=== PATIENT | female | born 1970 | race Two or more races ===

== ENCOUNTER → 2018-08-25 | Outpatient (CLI) | payer OTHER | END | disposition home or self-care (01) | LOC: LAB SHORT 13:47 → LAB 13:47 | DX: H92.02 Otalgia, left ear (principal) | CPT/HCPCS: 87070; 87077; 87186; 87205 ==

== ENCOUNTER 2020-07-20 09:56 | Day surgery (SDC) | payer OTHER ==
[~2020-07-20] VITALS: Ht 154.9 cm; Wt 52.6 kg
[2020-07-20] MEDS ORDERED: Vitamin D2000 UNIT PO (10:36)
--- NOTE | 2020-07-20 11:10 | NUR ---
07/20/20 1110 Meka Encarnacion TRANSLATION SERVICES UTILIZED IN PRE-OP FOR ADMISSION & CONSULTATION WITH PHYSICIAN.
== END 2020-07-20 14:30 | disposition home or self-care (01) ==
LOC: ORSCSDS 09:56
PROVIDERS: Otolaryngology
PROC: 0FB80ZX Excision of Cystic Duct, Open Approach, Diagnostic (ICD-10-PCS; principal; 2020-07-20 11:30)
DX: Q18.0 Sinus, fistula and cyst of branchial cleft (principal)
CPT/HCPCS: 88305; J1100; J2250; J2370; J2405; J2704; J3010; J7120

== ENCOUNTER 2022-07-20 12:00 | Inpatient (IN) | payer OTHER ==
[~2022-07-20] VITALS: Ht 162.6 cm; Wt 55.1 kg
[~2022-07-20 12:00] MED LIST changes: -Vitamin D1000 UNI1 PO
[2022-07-20 15:10] LABS: Source, Urine Clean Catch
[2022-07-20 15:17] LABS: Appearance, Urine Hazy (Clear); Bilirubin, Urine Neg (Neg); Blood, Urine 2+ (Neg); Glucose Qualitative, Urine Neg (Neg); Ketones, Urine Neg (Neg); Leukocyte Esterase, Urine 3+ (Neg); Nitrite, Urine Neg (Neg); Protein, Urine 2+ (Neg); Specific Gravity, Urine 1.015 (1.003-1.022); Urobilinogen, Urine NORM (Normal)
[2022-07-20 15:46] LABS: Color, Urine Pale Yellow (P-Yellow)
[2022-07-20 15:47] LABS: Bacteria Many /hpf; Squamous Epithelial Cells Mod /hpf (Few); Transitional Epithelial Cells Few /hpf (0-Rare); White Blood Cells, Urine 25-50 /hpf (0-5)
[2022-07-20] MEDS ORDERED: Vitamin D1000 UNI1 PO (23:55)
[2022-07-21 05:09] LABS: BASOPHILS ABSOLUTE AUTO 0.02 K/mm3 (0.00-0.23); BASOPHILS PERCENT AUTO 0 % (0-2); EOSINOPHILS ABSOLUTE AUTO 0.14 K/mm3 (0.00-0.68); EOSINOPHILS PERCENT AUTO 1 % (0-6); Hematocrit 28.3 % (33.0-51.0); Hemoglobin 9.5 g/dL (11.5-16.0); IMMATURE GRAN ABSOLUTE AUTO 0.07 K/mm3 (0.00-0.10); IMMATURE GRAN PERCENT AUTO 1 % (0-1); LYMPHOCYTES ABSOLUTE AUTO 0.79 K/mm3 (0.84-5.20); LYMPHOCYTES PERCENT AUTO 6 % (21-46); MONOCYTES ABSOLUTE AUTO 0.76 K/mm3 (0.16-1.47); MONOCYTES PERCENT AUTO 6 % (4-13); Mean Corpuscular HGB 19.6 pg (26.0-34.0); Mean Corpuscular HGB Conc 33.6 g/dL (31.5-36.5); Mean Corpuscular Volume 59 fL (80-100); NEUTROPHILS ABSOLUTE AUTO 12.15 K/mm3 (1.96-9.15); NEUTROPHILS PERCENT AUTO 87 % (41-73); Platelet Count 147 K/mm3 (150-400); RDW Coefficient Variation 15.4 % (11.7-14.2); RDW Standard Deviation 30.7 fL (35.1-46.3); Red Blood Cell Count 4.84 M/mm3 (3.80-5.20); White Blood Cell Count 13.93 K/mm3 (4.00-11.30)
[2022-07-21 05:47] LABS: Albumin, Blood 2.7 g/dL (3.4-5.0); Albumin/Globulin Ratio 0.8 (0.8-1.8); Bilirubin, Total 0.4 mg/dL (0.1-1.0); Bun/Creatinine Ratio 8.5 (12.0-20.0); Creatinine, Blood 13.6 mg/dL (0.40-1.00); Globulin, Blood 3.4 g/dL (2.2-4.0); Potassium, Blood 5.2 mmol/L (3.5-5.5); Total Protein, Blood 6.1 g/dL (6.4-8.2)
--- NOTE | 2022-07-21 07:54 | NUR ---
OLI SLEPT WELL MOST OF THE NIGHT. STATES FEELS MUCH BETTER THAN SHE HAS SINCE SHE GOT SICK. ORAL INTAKE OF 800 ML CONSISTING OF WATER, ANU MIST AND HOT TEA. VERY MINIMAL CHANGE IN CREATININE THIS MORNING. NIGHT HOSPITALIST INFORMED WITH NO NEW ORDERS. IN GIVING REPORT TO ONCOMING RN, IT WAS NOTED THAT PATIENT WAS SUPPOSED TO HAVE ADDITIONAL IV FLUIDS THAN LITER RECEIVED LAST NIGHT. FLUIDS WILL BE RESTARTED THIS AM. NO NAUSEA, VOMITING. NO COMPLAINTS OF PAIN OR DISCOMFORT OVERNIGHT
[2022-07-21 13:38] LABS: Percent Saturation 17.9 % (15.0-50.0)
--- NOTE | 2022-07-21 14:03 | NUR ---
NAUSEA/VOMITING Patient c/o nausea and had some emesis. T.O. receieved from Dr. Rock for 4mg SL zofran q6 prn for nausea/vomiting. EMAR updated.
--- NOTE | 2022-07-21 17:31 | NUR ---
Shift Summary A/Ox4, pleasant. Independent to bathroom. Following instructions well. States hungry but unable to keep food down d/t nausea/vomiting. Medicated for N/V per EMAR with good effect. Plan for perma cath placement by Dr. Cordero tomorrow (07/22) then initiate dialysis afterward. Family at bedside most of the day. Poor appetite. Deneis pain.
[2022-07-21 18:27] LABS: Phosphorus, Blood 7.4 mg/dL (2.5-4.9)
--- NOTE | 2022-07-22 05:22 | NUR ---
PATIENT HAD NO COMPLAINTS OF NAUSEA OR DISCOMFORT OVERNIGHT. INFORMED PATIENT TO STOP HER PO INTAKE AT 0500 IN PREPARATION FOR POSSIBLE DIALYSIS CATH PLACEMENT TODAY. URINE SENT TO LAB EARLY AM. SEE RESULTS IN REVIEW. THE LAB CALLED EARLY IN EVENING AND STATED THAT THEY WERE UNABLE TO LOCATE A LAB CAPABLE OF PROCESSING THE URINE AMA TOXIN TEST. THEY EVEN CHECKED WITH POISON CONTROL
[2022-07-22 05:49] LABS: BASOPHILS PERCENT AUTO 0 % (0-2); EOSINOPHILS PERCENT AUTO 1 % (0-6); Hematocrit 26.8 % (33.0-51.0); Hemoglobin 9.2 g/dL (11.5-16.0); IMMATURE GRAN PERCENT AUTO 1 % (0-1); MONOCYTES PERCENT AUTO 6 % (4-13); Mean Corpuscular HGB 19.7 pg (26.0-34.0); Mean Corpuscular HGB Conc 34.3 g/dL (31.5-36.5); Mean Corpuscular Volume 58 fL (80-100); RDW Coefficient Variation 15.3 % (11.7-14.2); RDW Standard Deviation 30.1 fL (35.1-46.3); Red Blood Cell Count 4.66 M/mm3 (3.80-5.20); White Blood Cell Count 11.07 K/mm3 (4.00-11.30)
[2022-07-22 05:56] LABS: BASOPHILS ABSOLUTE AUTO 0.03 K/mm3 (0.00-0.23); EOSINOPHILS ABSOLUTE AUTO 0.16 K/mm3 (0.00-0.68); IMMATURE GRAN ABSOLUTE AUTO 0.08 K/mm3 (0.00-0.10); LYMPHOCYTES ABSOLUTE AUTO 1.11 K/mm3 (0.84-5.20); LYMPHOCYTES PERCENT AUTO 10 % (21-46); MONOCYTES ABSOLUTE AUTO 0.72 K/mm3 (0.16-1.47); NEUTROPHILS ABSOLUTE AUTO 9.09 K/mm3 (1.96-9.15); NEUTROPHILS PERCENT AUTO 81 % (41-73)
[2022-07-22 06:10] LABS: Albumin, Blood 2.5 g/dL (3.4-5.0); Albumin/Globulin Ratio 0.7 (0.8-1.8); Bilirubin, Total 0.3 mg/dL (0.1-1.0); Bun/Creatinine Ratio 8.6 (12.0-20.0); Globulin, Blood 3.4 g/dL (2.2-4.0); Phosphorus, Blood 7.1 mg/dL (2.5-4.9); Potassium, Blood 4.8 mmol/L (3.5-5.5); Total Protein, Blood 5.9 g/dL (6.4-8.2)
[2022-07-22 06:24] LABS: Platelet Count 145 K/mm3 (150-400)
--- NOTE | 2022-07-22 09:00 | NUR ---
SOHAM, RN FROM [facility], CALLS TO ASK IF PT IS POSSIBLY . PT REPORTS TO NURSE THAT SHE HASN'T HAD A PERIOD IN OVER ONE YEAR. SHE DOESNOT BELIEVE THAT SHE CAN BE . RN CALLED SOHAM TO UPDATE HIM.
--- NOTE | 2022-07-22 09:30 | NUR ---
DR. FREY AT BEDSIDE, SPEAKING TO PT'S AND PT ABOUT THE PERMACATH PROCEDURE.
--- NOTE | 2022-07-22 10:30 | NUR ---
PT IS TRANSPORTED TO THE OPERATING ROOM FOR PLACEMENT OF A PERMACATH. RN CALLED NURSE JEAN IN DIALYSIS TO UPDATE HER.
--- NOTE | 2022-07-22 13:58 | NUR ---
LATE ENTRY: RADIOLOGY CALLED TO CONFIRM WITH THIS RN THAT PLACEMENT OF THE PERMACATH IS CONFIRMED, NO PNEUMOTHORAX NOTED. RN THEN TRANSPORTED PT IN MEDICAL BED TO DIALYSIS, ACCOMPANIED BY PT'S SPOUSE AND PRICING MANAGER. RN NOTIFIED TELEMETRY THAT PT IS IN DIALYSIS. RN GAVE REPORT TO DIALYSIS NURSE JEAN. DR. PIERSON ON TELEHEATLH VISIT WITH PT AT DIALYSIS, UPDATES PT ON FUTURE TREATMENT PLAN, LIGHT DIALYSIS X 4 DAYS, CONTINUE TO MONITOR KIDNEY FUNCTION. PT IS SLEEPY, BUT AROUSABLE. VSS.
--- NOTE | 2022-07-22 19:51 | NUR ---
SHIFT SUMMARY PT HAD HER PERMACATH PLACED TODAY, FOR TEMPORARY DIALYSIS TO REMOVE MUSHROOM TOXINS FROM HER BLOOD. UPON RETURNING TO THE MEDICAL FLOOR, PT'S BLOOD PRESSURE WAS A LITTLE SOFT (SYSTOLIC 105-109). SHE WAS AROUSABLE TO VERBAL STIMULI, BUT VERY SLEEPY. PT WAS TRANSFERRED TO DIALYSIS. AFTER DIALYSIS, PT RETURNED TO MEDICAL FLOOR AND WAS VERY COLD. HER ARMS/LEGS ARE PALE. BLOOD PRESSURE STABLE (SYSTOLIC 1O9). ROOM AIR. SPEAKING IN COMPLETE SENTENCES. PT IS BEGINNING TO EAT MORE, TOLERATING PO INTAKE INCLUDING APPLESAUCE, BLUEBERRIES, WATER, AND SOME TURKEY SANDWICH. HER IS AT BEDSIDE, VERY ATTENTIVE AND SUPPORTIVE. PLEASANT FAMILY. THE PERMACATH TO THE RIGHT UPPER CHEST WALL HAS DRIED BLOOD ON THE DRESSING. NOT ACTIVELY BLEEDING. PT REPORTED PAIN, AND RECEIVED TYLENOL WHICH DID PROVIDE RELIEF. A K-PAD PROVIDING WARM TREATMENT IS APPLIED TO HER BACK, TO KEEP HER WARM. CALL LIGHT WITHIN REACH.
--- NOTE | 2022-07-22 22:45 | NUR ---
PT EXPRESSED WORSENING ANDERSON AND DIFFICULTY SLEEPING RESULT. TYLENOL NOT AVAILABLE YET. DISCUSSED W/ AND NEW ORDER RECIEVED FOR MELATONIN. SHE INSTRUCTED TO EVALUATE FOR EFFECT THEN REASSESS NEED FOR PAIN MEDS. ARACELI.
--- NOTE | 2022-07-22 23:55 | NUR ---
PT HAS BEEN CALLING VERY FREQUENTLY W/HIGH ANXIETY AND VARIOUS NONACUTE REQUESTS. SHE'S SEEMINGLY MORE CONFUSED, IS NOW UNAWARE OF TELEMETRY'S PURPOSE AND SHE'S HAVING DIFFICULTY SPECIFYING NEEDS. SHE ADMITS TO FEELING GENERALLY UNWELL W/NAGGING ANDERSON, INTERMITTENT NAUSEA AND CONTINUED TROUBLE SLEEPING. PT SAYS SHE CAN'T GET COMFORTABLE DESPITE STAFF'S REPEATED ATTEMPTS AT REPOSITIONING HER AND PLACEING BELONGINGS WITHIN REACH PER HER REQUESTS. SHE MOSTLY SAYS SHE "JUST CANNOT RELAX AND WANTS TO SLEEP". TELEMETRY HAS ALSO BEEN HAVING FREQ INTERFERENCE AND A POOR SIGNAL REGARDLESS OF MULTI ATTEMPTS TO TROUBLESHOOT IT. ALERTED TO SITUATION. NEW ORDER RECIEVED FOR ATIVAN 1MG IV X1 AND D/C TELE. MED PROVIDED, WILL MONITOR FOR AFFECT.
--- NOTE | 2022-07-23 02:00 | NUR ---
ATIVAN WAS AFFECTIVE AT PROMOTING SLEEP/REST AND RELIEVING PRIOR ANXIETY. SHE'S RESTING COMFORTABLY W/O S/S DISTRESS AND HASN'T COMPLAINED FURTHER OF ANDERSON. WCTM.
--- NOTE | 2022-07-23 05:16 | NUR ---
SUMMARY: PT IS A/OX4 AND PLEASANT AND COOPERATIVE W/CARE. SHE CALLS APPROPRIATELY TO SPECIFY NEEDS AND IS SBA OOB. SHE BECAME VERY ANXIOUS THIS SHIFT W/NAGGING ANDERSON, INTERMITTENT NAUSEA AND C/O DIFFICULTY RELAXING, GETTING COMFORTABLE AND SLEEPING. TYLENOL HAD BEEN RECIEVED TOO RECENTLY SO RX'D MELATONIN WHICH WAS INEFFECTIVE THEN ATIVAN IV X1 WAS PROVIDED FOR GOOD EFFECT. SHE SLEPT MOST OF NOCTE W/O S/S DISTRESS AND HASN'T C/O PAIN OR DISCOMFORT SINCE. NEW PERMCATH TO R.CW IS INTACT W/DX THAT HAS SM AMT OLD DRIED BLOOD BENEATH IT. 1ST ROUND OF DIALYSIS WAS RECIEVED TO REMOVE MUSHROOM TOXINS AFTER CATH WAS PLACED ON 07/22/22. SHE CONT'S TO BE OLIGURIC W/RENAL FUNTION BEING MONITORED, AM LABS PENDING. BP'S HAVE STABILIZED AND TELE WAS DC'D THIS SHIFT D/T REMAINING NSR W/O ECTOPIES AT 60'S BPM. NO ACUTE CHANGES, VSS/AFEBRILE. WCTM AND REPORT TO DAY RN.
[2022-07-23 09:11] LABS: HBSAG SCREEN Positive (Negative); HCV AB <0.1 (0.0-0.9); HEP A AB, IGM Negative (Negative); HEP B CORE AB, IGM Negative (Negative); HEP B CORE AB, TOT Positive (Negative)
--- NOTE | 2022-07-23 19:20 | NUR ---
SHIFT SUMMARY PT AxOx4. PLEASANT AND COOPERATIVE WITH CARE. PT HAD SECOND RUN OF HEMODIALYIS THIS AM. PT TOLERATED HD WELL. PT DENIES PAIN, DIZZINESS OR WEAKNESS UPON RETURN TO ROOM AFTER DIALYIS. SBA. PT'S , LAURIE, IN ROOM THIS SHIFT. VITALS REVIEWED. PT REQUESTS SLEEP/RELAXING MEDICATIONS THIS EVENING. NIGHT RN NOTIFIED OF PATIENT'S REQUEST. PT CURRENTLY RESTING IN BED WITH CALL LIGHT IN REACH. DENIES ANY FURTHER NEEDS AT THIS TIME.
[2022-07-24 07:30] LABS: BASOPHILS ABSOLUTE AUTO 0.03 K/mm3 (0.00-0.23); BASOPHILS PERCENT AUTO 0 % (0-2); EOSINOPHILS ABSOLUTE AUTO 0.16 K/mm3 (0.00-0.68); EOSINOPHILS PERCENT AUTO 2 % (0-6); Hematocrit 28.7 % (33.0-51.0); Hemoglobin 9.4 g/dL (11.5-16.0); IMMATURE GRAN ABSOLUTE AUTO 0.02 K/mm3 (0.00-0.10); IMMATURE GRAN PERCENT AUTO 0 % (0-1); LYMPHOCYTES ABSOLUTE AUTO 0.93 K/mm3 (0.84-5.20); LYMPHOCYTES PERCENT AUTO 11 % (21-46); MONOCYTES ABSOLUTE AUTO 0.79 K/mm3 (0.16-1.47); MONOCYTES PERCENT AUTO 9 % (4-13); Mean Corpuscular HGB 19.4 pg (26.0-34.0); Mean Corpuscular HGB Conc 32.8 g/dL (31.5-36.5); Mean Corpuscular Volume 59 fL (80-100); NEUTROPHILS PERCENT AUTO 77 % (41-73); Platelet Count 160 K/mm3 (150-400); RDW Coefficient Variation 15.5 % (11.7-14.2); RDW Standard Deviation 31.4 fL (35.1-46.3); Red Blood Cell Count 4.85 M/mm3 (3.80-5.20); White Blood Cell Count 8.43 K/mm3 (4.00-11.30)
[2022-07-24 08:07] LABS: Albumin, Blood 2.5 g/dL (3.4-5.0); Albumin/Globulin Ratio 0.8 (0.8-1.8); Bilirubin, Total 0.6 mg/dL (0.1-1.0); Bun/Creatinine Ratio 5.9 (12.0-20.0); Calcium, Blood 8.2 mg/dL (8.5-10.1); Creatinine, Blood 5.77 mg/dL (0.40-1.00); Globulin, Blood 3.3 g/dL (2.2-4.0); Phosphorus, Blood 4.7 mg/dL (2.5-4.9); Potassium, Blood 3.8 mmol/L (3.5-5.5); Total Protein, Blood 5.8 g/dL (6.4-8.2)
--- NOTE | 2022-07-24 18:40 | NUR ---
END OF SHIFT SUMMARY: PATIENT DENIED PAIN OR NAUSEA THROUGHOUT THE SHIFT. PATIENT INITIALLY REPORTED FEELING BETTER THIS MORNING (WELL ENOUGH TO TAKE A SHOWER). PATIENT'S SO REPORTED THAT HER COLOR WAS IMPROVED. PATIENT WAS ALERT AND ORIENTED AND QUICKLY FOLLOWING DIRECTIONS. HOWEVER, PATIENT WAS EXTREMELY FATIGUED POST DIALYSIS. PATIENT SLEPT FOR MUCH OF THE AFTERNOON. ONCE THE PATIENT WAS RESTED, PATIENT HAD A MODERATE APPETITE AND CONTINUED TO DENY NAUSEA. THIS MORNING, PATIENT VOIDED 1000ML OF CLEAR, YELLOW URINE.
--- NOTE | 2022-07-25 06:13 | NUR ---
SHIFT SUMMARY PT A&O X4, INDEPENDENT IN ROOM- ENCOUAGED PT TO CALL FOR ASSISTANCE T/O NIGHT DUE TO ATIVAN GIVEN - PT URINATED AT BEGINNING OF SHIFT- PT REPORTS FEELING STRONGER AND PER HER S.O. - HE REPORTS PATIENT IS RETURNED TO BASELINE MENTATION
[2022-07-25 07:49] LABS: Albumin, Blood 2.8 g/dL (3.4-5.0); Anion Gap 9 mmol/L (6-16); Blood Urea Nitrogen 18 mg/dL (8-24); Bun/Creatinine Ratio 4.5 (12.0-20.0); CO2, Blood 28 mmol/L (21-32); Calcium, Blood 8.1 mg/dL (8.5-10.1); Chloride, Blood 101 mmol/L (98-108); Creatinine, Blood 3.99 mg/dL (0.40-1.00); Glomerular Filtration Rate 13 (60-); Glucose, Blood 137 mg/dL (70-99); Phosphorus, Blood 2.8 mg/dL (2.5-4.9); Potassium, Blood 3.6 mmol/L (3.5-5.5); Sodium, Blood 138 mmol/L (136-145)
--- NOTE | 2022-07-25 18:24 | NUR ---
SHIFT SUMMARY PT INDEPENDENT IN ROOM. HAS DENIED PAIN THROUGH DAY. AT BEDSIDE MOST OF THE DAY. NO DIALYSIS TODAY. LABS TOMORROW TO MONITER FOR NEXT DIALYSIS PER DR. PIERSON.
[2022-07-26 05:05] LABS: Anion Gap 9 mmol/L (6-16); Blood Urea Nitrogen 29 mg/dL (8-24); Bun/Creatinine Ratio 6.6 (12.0-20.0); CO2, Blood 26 mmol/L (21-32); Calcium, Blood 8.6 mg/dL (8.5-10.1); Chloride, Blood 104 mmol/L (98-108); Creatinine, Blood 4.41 mg/dL (0.40-1.00); Glomerular Filtration Rate 11 (60-); Glucose, Blood 114 mg/dL (70-99); Phosphorus, Blood 4.5 mg/dL (2.5-4.9); Potassium, Blood 3.8 mmol/L (3.5-5.5); Sodium, Blood 139 mmol/L (136-145)
--- NOTE | 2022-07-26 05:15 | NUR ---
SHIFT SUMMARY PT A&O X4, PT REQUESTED ATIVAN TO HELP HER RELAX AND SLEEP- PT LATER REQUESTED MELATONIN D/T UNABLE TO FALL ASLEEP- PT REPORTS GETTING APPETITE BACK AND ATE LARGE SNACK BEFORE BED- PT REPORTED NOT HAVING BM SINCE 07/22- PT DRANK PRUNE JUICE WITH SNACK- PT INDEPENDENT IN ROOM
--- NOTE | 2022-07-26 17:52 | NUR ---
SHIFT SUMMARY PT INDEPENDENT IN ROOM. AT BEDSIDE ON AND OFF. RASH NOTED ON ABDOMEN AND BACK AND A FEW SPOTS ON HER CHEST WELL INNER THIGHS. RAISED, RED AND BUMPY, SHE STATES IT CAN GET ITCHY. HAS HAD NO PAIN. TOOK A SHOWER TODAY.
--- NOTE | 2022-07-27 06:10 | NUR ---
SHIFT SUMMARY PT A&O X 4- PT INDEPENDENT IN ROOM- PT CONTINUES TO HAVE RAISED RED BUMPY RASH ON FRONT/BACK/ UPPER LEGS AND ARMS - PT REPORTS ITCHING IS TOLERATED- MEDICATED PT WITH AMBIEN FOR SLEEP AND PT SLEPT T/O NIGHT
[2022-07-27 07:31] LABS: Albumin, Blood 3.3 g/dL (3.4-5.0); Anion Gap 8 mmol/L (6-16); Blood Urea Nitrogen 49 mg/dL (8-24); Bun/Creatinine Ratio 11.6 (12.0-20.0); CO2, Blood 25 mmol/L (21-32); Chloride, Blood 104 mmol/L (98-108); Creatinine, Blood 4.22 mg/dL (0.40-1.00); Glomerular Filtration Rate 12 (60-); Glucose, Blood 134 mg/dL (70-99); Phosphorus, Blood 3.5 mg/dL (2.5-4.9); Sodium, Blood 137 mmol/L (136-145)
--- NOTE | 2022-07-27 20:02 | NUR ---
SHIFT SUMMARY: NO ACUTE EVENTS. NO HD TODAY. DENIED PAIN. GAVE DOSE OF MIRALAX, HAD BM THIS EVENING. RASH ON ABDOMEN AND GROIN CLEARING SLOWLY. HAD VISIT FROM FAMILY.
--- NOTE | 2022-07-28 03:07 | NUR ---
SHIFT SUMMARY; PATIENT RESTED COMFORTABLY IN BED DURING NOC SHIFT. SHE WAS ABLE TO TAKE A SHOWER EARLY IN THE EVENING WITH NO DIFFICULTY. CLEAR DRESSING APPLIED TO HER PERMA CATH AND HER IV SITE TO KEEP THEM CLEAN AND DRY. PATIENT IS AO X 4 AND HAS PLEASANT AFFECT. SHE DENIES ANY WANTS OR NEEDS DURING NIGHT AND SLEPT MOST OF SHIFT.
[2022-07-28 09:00] LABS: Bun/Creatinine Ratio 17.4 (12.0-20.0); Calcium, Blood 9.1 mg/dL (8.5-10.1); Creatinine, Blood 3.39 mg/dL (0.40-1.00); Potassium, Blood 3.8 mmol/L (3.5-5.5)
[2022-07-28] MEDS ORDERED: BENADRYL25 MG PO (14:30)
--- NOTE | 2022-07-28 14:43 | NUR ---
WAS IN AND PULLED PERMACATH ABOUT 1415. RN ON DUTY WHILE I WAS AT LUNCH HELD PRESSURE FOR 15 MIN. I OBSERVED WHEN RETURNED. NO BLEEDING NOTED. RECHECK AT 1445, NO BLEEDING NOTED. THERE IS MEPILEX ON SITE. PT PLEASNT TALKING.
--- NOTE | 2022-07-28 16:39 | NUR ---
DISCHARGE REVIEWED WITH PT . SHE HAD PERMACATH REMOVED THIS AFT. NO BLEEDING NOTED. DRESSING CDI. NO SWELLING OR HEMATOMA NOTED. PT DENIES PAIN. NO TELE. IV PULLED INTACT. PT VERBALIZED UNDERSTANDING MEDS AND INST. AGREES TO CALL ON SATURDAY FOR FOLLOWUP. PT STATES FEELS COMFORTABLE TO GO HOME.
--- NOTE | 2022-07-28 17:18 | NUR ---
PT WHEELED TO DOOR AT 1710 BY JACQUELINE
[2022-07-30 07:08] LABS: HGB A 93.7 % (96.4-98.8); HGB A2 6.3 % (1.8-3.2)
== END 2022-07-28 17:08 | disposition home or self-care (01) | DRG 917 ==
LOC: ER 12:00 → MEDS 17:34 → ERHOLD 17:34 → MEDS 20:38
PROVIDERS: Internal Medicine; Internal Medicine Nephrology; Physician Assistant; Surgery; ADMIT Hospitalist
PROC: 02HV33Z Insertion of Infusion Device into Superior Vena Cava, Percutaneous Approach (ICD-10-PCS; 2022-07-22)
PROC: B5181ZA Fluoroscopy of Superior Vena Cava using Low Osmolar Contrast, Guidance (ICD-10-PCS; 2022-07-22)
PROC: 5A1D70Z Performance of Urinary Filtration, Intermittent, Less than 6 Hours Per Day (ICD-10-PCS; 2022-07-22)
PROC: 0JH63XZ Insertion of Tunneled Vascular Access Device into Chest Subcutaneous Tissue and Fascia, Percutaneous Approach (ICD-10-PCS; principal; 2022-07-22 14:00)
PROC: 02PYX3Z Removal of Infusion Device from Great Vessel, External Approach (ICD-10-PCS; 2022-07-28)
DX: T62.0X1A Toxic effect of ingested mushrooms, accidental (unintentional), initial encounter (principal); G93.41 Metabolic encephalopathy; N17.0 Acute kidney failure with tubular necrosis; K72.00 Acute and subacute hepatic failure without coma; E87.1 Hypo-osmolality and hyponatremia; D63.8 Anemia in other chronic diseases classified elsewhere; K71.2 Toxic liver disease with acute hepatitis; E83.39 Other disorders of phosphorus metabolism; L23.9 Allergic contact dermatitis, unspecified cause; Z91.041 Radiographic dye allergy status; Z98.891 History of uterine scar from previous surgery; Z79.899 Other long term (current) drug therapy; X58.XXXA Exposure to other specified factors, initial encounter
CPT/HCPCS: 36415; 76770; 80048; 80053; 80069; 81001; 81015; 82150; 82570; 82728; 83021; 83540; 83550; 83615; 84100; 84156; 85025; 85610; 85730; 86704; 86708; 86803; 87086; 87340; 96360; 99284-25; A9270; C1750; J0132; J0690; J1100; J1644; J2060; J2250; J2370; J2405; J2704; J2795; J3010; J7030; J7060; J7512

== ENCOUNTER → 2022-07-20 | Outpatient (CLI) | payer OTHER ==
[~2022-07-20] MED LIST: Vitamin D1000 UNI1 PO; Vitamin D2000 UNIT PO
[2022-07-20 11:17] LABS: BASOPHILS ABSOLUTE AUTO 0.02 K/mm3 (0.00-0.23); BASOPHILS PERCENT AUTO 0 % (0-2); EOSINOPHILS ABSOLUTE AUTO 0.13 K/mm3 (0.00-0.68); EOSINOPHILS PERCENT AUTO 1 % (0-6); Hematocrit 33.3 % (33.0-51.0); Hemoglobin 11.1 g/dL (11.5-16.0); IMMATURE GRAN PERCENT AUTO 1 % (0-1); LYMPHOCYTES ABSOLUTE AUTO 0.76 K/mm3 (0.84-5.20); LYMPHOCYTES PERCENT AUTO 5 % (21-46); MONOCYTES ABSOLUTE AUTO 0.98 K/mm3 (0.16-1.47); MONOCYTES PERCENT AUTO 6 % (4-13); Mean Corpuscular HGB 19.7 pg (26.0-34.0); Mean Corpuscular HGB Conc 33.3 g/dL (31.5-36.5); Mean Corpuscular Volume 59 fL (80-100); NEUTROPHILS ABSOLUTE AUTO 13.65 K/mm3 (1.96-9.15); NEUTROPHILS PERCENT AUTO 87 % (41-73); RDW Coefficient Variation 15.8 % (11.7-14.2); RDW Standard Deviation 30.6 fL (35.1-46.3); Red Blood Cell Count 5.64 M/mm3 (3.80-5.20); White Blood Cell Count 15.64 K/mm3 (4.00-11.30)
[2022-07-20 11:29] LABS: Albumin, Blood 3.7 g/dL (3.4-5.0); Albumin/Globulin Ratio 0.9 (0.8-1.8); Bilirubin, Total 0.4 mg/dL (0.1-1.0); Bun/Creatinine Ratio 8.2 (12.0-20.0); Calcium, Blood 8.7 mg/dL (8.5-10.1); Globulin, Blood 4.2 g/dL (2.2-4.0); Potassium, Blood 5.3 mmol/L (3.5-5.5); Total Protein, Blood 7.9 g/dL (6.4-8.2)
[2022-07-20 11:35] LABS: Creatinine, Blood 13.58 mg/dL (0.40-1.00)
[2022-07-20 11:43] LABS: Source, Urine Clean Catch
[2022-07-20 11:54] LABS: Bacteria Mod /hpf; Squamous Epithelial Cells Few /hpf (Few); Transitional Epithelial Cells Few /hpf (0-Rare)
[2022-07-20 12:10] LABS: International Normalized Ratio 0.99; Prothrombin Time Results 10.4 Sec (9.7-11.5)
[2022-07-20 12:12] LABS: Platelet Count 246 K/mm3 (150-400)
== END | disposition home or self-care (01) ==
LOC: LAB 11:12 → LAB SHORT 11:12
PROVIDERS: General Practice
DX: T62.0X1A Toxic effect of ingested mushrooms, accidental (unintentional), initial encounter (principal)
CPT/HCPCS: 80053; 81015; 82150; 85025; 85610; 85730; 87086